=== PATIENT | male | born 1985 | race Caucasian/White ===

== ENCOUNTER 2017-08-18 14:30 | Emergency (ER) | payer OTHER ==
[~2017-08-18] VITALS: Ht 180.3 cm; Wt 106.0 kg
[~2017-08-18 14:30] MED LIST: AMOXICILLIN500 M1 PO; CLARITIN,ALAVAR10 MG PO; CYMBALTA60 MG PO; DULOXETINE HCL60 MG PO; ERYTHROMYC1 APPLICAT BOTH EYES; FLONASE16 G1 BOTH NARES; GABAPENTIN400 MG PO; INDERAL10 MG PO; NAPROSYN500 MG PO; NEURONTIN400 MG PO; NOHOMEMEDS; PEN-VEE K,VEET500 MG PO; PROPRANOLOL HCL10 MG PO; ROBAXIN500 MG PO; ULTRAM50 MG PO
[2017-08-18] MEDS ORDERED: DEPAKOTE250 MG PO (15:47)
[2017-08-18 15:55] VITALS: BP 131/89
== END 2017-08-18 15:56 | disposition home or self-care (01) ==
LOC: EME 14:30
DX: Z76.0 Encounter for issue of repeat prescription (principal); F31.9 Bipolar disorder, unspecified; F17.200 Nicotine dependence, unspecified, uncomplicated
CPT/HCPCS: 99281; 99283

== ENCOUNTER 2018-01-02 12:49 | Emergency (ER) | payer OTHER ==
[~2018-01-02] VITALS: Ht 177.8 cm; Wt 90.9 kg
[~2018-01-02 12:49] MED LIST changes: +DEPAKOTE250 MG PO
[2018-01-02 14:09] VITALS: BP 128/93
== END 2018-01-02 14:12 | disposition left against medical advice (07) ==
LOC: EME 12:49
DX: T40.1X1A Poisoning by heroin, accidental (unintentional), initial encounter (principal); R11.0 Nausea; Z53.21 Procedure and treatment not carried out due to patient leaving prior to being seen by health care provider; G89.29 Other chronic pain; M54.9 Dorsalgia, unspecified; B19.20 Unspecified viral hepatitis C without hepatic coma; F17.200 Nicotine dependence, unspecified, uncomplicated
CPT/HCPCS: 93005; 99281; 99283